=== PATIENT | female | born 1960 | race Caucasian/White ===

== ENCOUNTER 2018-10-17 12:29 | Emergency (ER) | payer SELFPAY ==
[~2018-10-17] VITALS: Ht 167.6 cm; Wt 113.9 kg
--- NOTE | 2018-10-17 12:30 | NUR ---
SEEN AND EXAMINED BY DR. MELCHOR.
--- NOTE | 2018-10-17 12:32 | NUR ---
PT [id number] FROM HOME FOR FACIAL SWELLING, THROAT TIGHTNESS. NAUSEA , PT IS AAOX4, NOT IN RESPIRATORY DISTRESS, V/S STABLE, KEPT RESTED AND COMFORTABLE.
[2018-10-17] MEDS ORDERED: methylPREDNISolone SOD SUCC 40 MG/ML VIAL ONE (12:40)
[2018-10-17] MEDS ORDERED: diphenhydrAMINE HCL 50 MG/ML VIAL ONE (12:40)
[2018-10-17] MEDS ORDERED: methylPREDNISolone SOD SUCC 125 MG/2ML VIAL ONE (12:41)
[2018-10-17] MEDS ORDERED: FAMOTIDINE/PF INJ 20 MG/2 ML VIAL IV ONE ×2 (12:41→13:00)
[2018-10-17] MEDS ORDERED: IV NS 0.9% 1,000 ML IV ONE (13:00)
[2018-10-17] MEDS ORDERED: methylPREDNISolone SOD SUCC 125 MG/2ML VIAL IV ONE (13:00)
[2018-10-17] MEDS ORDERED: diphenhydrAMINE HCL 50 MG/ML VIAL IV ONE (13:00)
--- NOTE | 2018-10-17 14:02 | NUR ---
IV removed. Catheter intact and site benign. Pressure and 4x4 applied to site. No bleeding noted. Patient discharged to home in stable condition. Written and verbal after care instructions given. Patient verbalizes understanding of instruction.
[2018-10-17 14:03] VITALS: BP 126/82
== END 2018-10-17 14:04 | disposition home or self-care (01) ==
LOC: ER 12:33
DX: T78.40XA Allergy, unspecified, initial encounter (principal); X58.XXXA Exposure to other specified factors, initial encounter
CPT/HCPCS: J1200; J2920; J2930; J3490; J7030

== ENCOUNTER 2018-11-20 01:16 | Inpatient (IN) | payer MEDICARE, OTHER ==
[~2018-11-20] VITALS: Ht 167.6 cm; Wt 106.6 kg
--- NOTE | 2018-11-20 01:24 | NUR ---
PT BIBRA FOR ALLERGIC REACTION, PER EMS, PT WOKE UP WITH L FACIAL SWELLING, HIVES, AND SOB. PT WAS GIVEN 0.5 EPI, 50 MG BENADRYL, AND ALBUTEROL EN ROUTE. PT PUT ON THE MONITOR AND PULSE OX. PT SATURATING 98%. RESPIRATIONS EVEN AND UNLABORED. PENDING EVAL FROM ER
[2018-11-20] MEDS ORDERED: methylPREDNISolone SOD SUCC 125 MG/2ML VIAL IV ONE (02:00)
[2018-11-20] MEDS ORDERED: methylPREDNISolone SOD SUCC 125 MG/2ML VIAL ONE (02:03)
--- NOTE | 2018-11-20 02:08 | NUR ---
PT RESTING IN BED, NAD NOTED. WILL CONTINUE TO MONITOR.
--- NOTE | 2018-11-20 02:16 | NUR ---
EKG AT BEDSIDE.
--- NOTE | 2018-11-20 02:16 | NUR ---
Environmental Conservation Officer at bedside.
[2018-11-20] MEDS ORDERED: ALBUTEROL FS 2.5 MG/3 ML VIAL.NEB NEB ONE (02:30)
[2018-11-20] MEDS ORDERED: ALBUTEROL FS 2.5 MG/3 ML VIAL.NEB ONE (02:34)
--- NOTE | 2018-11-20 02:35 | NUR ---
RT AT BEDSIDE.
[2018-11-20 02:40] LABS: BASOPHILS % (AUTO) 0.4 % (0.0-2.0); EOSINOPHILS % (AUTO) 2.7 % (0.0-6.0); HEMATOCRIT 38 % (33-45); HEMOGLOBIN 12.7 g/dL (11.5-14.8); LYMPHOCYTES # (AUTO) 2.6 /CMM (0.8-4.8); LYMPHOCYTES % (AUTO) 43.9 % (20.0-44.0); MEAN CORPUSCULAR HGB CONC 33 g/dl (31.0-36.0); MEAN CORPUSCULAR VOLUME 87 fL (82-100); MONOCYTES # (AUTO) 0.5 /CMM (0.1-1.30); MONOCYTES % (AUTO) 8.1 % (2.0-12.0); NEUTROPHILS # (AUTO) 2.6 /CMM (1.8-8.9); NEUTROPHILS % (AUTO) 44.9 % (43.0-81.0); PLATELET COUNT (AUTO) 178 /CMM (150-450); WHITE BLOOD COUNT (AUTO) 5.8 K/uL (4.3-11.0)
--- NOTE | 2018-11-20 02:42 | NUR ---
XRAY AT BEDSIDE.
[2018-11-20 02:54] LABS: CARBON DIOXIDE 27 mmol/L (21-32); CHLORIDE 103 mmol/L (98-107); GLUCOSE 152 mg/dL (74-106); POTASSIUM 4.3 mmol/L (3.5-5.1); SODIUM SERUM 141 mmol/L (136-145); UREA NITROGEN, BLOOD 22 mg/dL (7-18)
[2018-11-20 03:09] LABS: ALANINE AMINOTRANSFERASE 50 U/L (12-78); ALBUMIN 3.6 g/dL (3.4-5.0); ALKALINE PHOSPHATASE 56 U/L (46-116); ASPARTATE AMINOTRANSFERASE 20 U/L (15-37); B-TYPE NATRIURETIC PEPTIDE 86 PG/ML (0-125); BILIRUBIN,DIRECT 0.2 mg/dL (0.0-0.2); BILIRUBIN,TOTAL 0.6 mg/dL (0.2-1.0); TOTAL PROTEIN, SERUM 7.2 g/dL (6.4-8.2)
--- NOTE | 2018-11-20 03:32 | NUR ---
REPORT GIVEN TO ROSSY BREWER FOR GOOD.
--- NOTE | 2018-11-20 03:41 | NUR ---
LETICIA CALLED TO READ RADIOLOGY REPORT
--- NOTE | 2018-11-20 03:50 | NUR ---
RANGE OPERATOR ADMITTING NOTES ADMITTED A 58 Y/O FEMALE, TRANSPORTED VIA GURNEY, ALERT AND ORIENTED X 4, CALM, NO SIGNS OF ACUTE DISTRESS NOTED, DENIES ANY PAIN, WITH IV ACCESS ON HER RIGHT ARM INTACT AND PATENT. INITIAL ASSESSMENT DONE, ORIENTED PATIENT TO HER ROOM, CALL LIGHT WITHIN REACH, PATIENT REQUESTED THAT SHE WANTS TO SLEEP AND DOESN'T WANNA BE BOTHERED AT THIS TIME, ALL NEEDS ATTENDED, REPOSITIONED FOR COMFORT. BED IN LOW LOCKED POSITION, KEPT CLEAN DRY AND COMFORTABLE. WILL MONITOR ACCORDINGLY.
[2018-11-20 04:00] VITALS: BP 113/62
[2018-11-20] MEDS ORDERED: MAGNESIUM HYDROXIDE 30 ML UDC PO PRN (04:00)
[2018-11-20] MEDS ORDERED: HYDROCODONE/APAP 5/325MG 1 EACH TABLET PO PRN (04:00)
[2018-11-20] MEDS ORDERED: MAG HYDROX/AL HYDROX/SIMETH 30 ML UDC PO PRN (04:00)
[2018-11-20] MEDS ORDERED: ZOLPIDEM TARTRATE 5 MG TABLET PO PRN (04:00)
[2018-11-20] MEDS ORDERED: ONDANSETRON HCL/PF 4 MG/2 ML VIAL IVP PRN (04:00)
[2018-11-20] MEDS ORDERED: IV NS 0.9% 1,000 ML IV PRN (04:00)
[2018-11-20] MEDS ORDERED: ACETAMINOPHEN 325 MG TABLET PO PRN (04:00)
[2018-11-20] MEDS ORDERED: Z GUARD REMEDY 2 OZ OINT TP PRN (04:00)
--- NOTE | 2018-11-20 07:30 | NUR ---
MAT ROLLER NOTES PATIENT WAS ABLE TO REST AND SLEEP COMFORTABLY, DENIES ANY PAIN, ALL SAFETY MEASURES IN PLACED, ENDORSED TO AM NURSE FOR CONTINUITY OF CARE.
--- NOTE | 2018-11-20 07:53 | NUR ---
lumber straightened Opening Notes Patient awake, resting in bed. Alert and oriented x4, able to verbalize needs. No complaints of pain at this time. Respirations even and unlabored on room air, no acute distress noted. On external color television console monitor; current rhythm: normal sinus rhythm at 73 bpm. Peripheral IV to the left arm 22 gauge, intact, patent and infusing ordered fluids. Updated patient on current plan of care and safety measures. Patient verbalized understanding. Safety and fall precautions in place: bed in lowest and locked position, side rails up x2, bed alarm on, call light and personal possessions within reach. Patient verbalized understanding. Will continue to monitor and intervene as needed.
[2018-11-20 08:00] VITALS: BP 99/50
[2018-11-20] MEDS: methylPREDNISolone SOD SUCC 125 MG/2ML VIAL IV SCH ×2 (08:57→13:13)
--- NOTE | 2018-11-20 08:57 | NUR ---
SUPERVISOR LANDSCAPE/MED RECON PATIENT UNABLE TO PROVIDE INFO RE: HOME MEDICATION . PER PATIENT "MY WENT TO WORK, I WILL CALL HIM LATER". PHARMACY OF CHOICE IS CLOSED TODAY.
[2018-11-20] MEDS ORDERED: MECL-102 PO (11:02)
[2018-11-20] MEDS ORDERED: IBUP-1957 PO (11:02)
[2018-11-20] MEDS ORDERED: ASPI-1152 PO (11:02)
[2018-11-20] MEDS ORDERED: ROSU5TAB PO (11:02)
[2018-11-20] MEDS ORDERED: DONE5TAB34 PO (11:02)
[2018-11-20] MEDS ORDERED: MEMA14CA5 PO (11:02)
[2018-11-20] MEDS ORDERED: OMEG1CAP PO (11:02)
[2018-11-20] MEDS ORDERED: LOSA100T31 PO (11:02)
[2018-11-20] MEDS ORDERED: SENN-168 PO (11:02)
[2018-11-20] MEDS ORDERED: AZEL137S7 NS (11:02)
[2018-11-20] MEDS ORDERED: ACET-2605 PO (11:02)
[2018-11-20] MEDS ORDERED: EZET10TA27 PO (11:02)
[2018-11-20] MEDS ORDERED: GABA-534 PO (11:02)
[2018-11-20] MEDS ORDERED: NITR0.4T48 SL (11:02)
[2018-11-20] MEDS ORDERED: SUMA100T16 PO (11:02)
[2018-11-20] MEDS ORDERED: CLON0.5T12 PO (11:02)
[2018-11-20] MEDS ORDERED: FAMO-131 PO (11:02)
--- NOTE | 2018-11-20 14:29 | NUR ---
SIDING INSTALLER NOTES-- RECEIVED ORDERS PER DR. STOCKTON FOR DISCHARGE, HOME SELF CARE. READ BACK AND VERIFIED. NOTED AND CARRIED OUT.
--- NOTE | 2018-11-20 15:00 | NUR ---
net mobile developermainframe applications developer Notes Patient awake, resting in bed. Alert and oriented x4, able to verbalize needs. No complaints of pain at this time. Respirations even and unlabored on room air, no acute distress noted. Vital signs stable, ambulates with steady gait. Peripheral IV to the left arm 22 gauge removed with catheter tip intact. No redness, swelling or bleeding of the site noted. Refused skin assessment and discharge photos, states she is "okay and does not need photos". Provided discharge instructions and Exitcare, including signs and symptoms of allergic reaction and emergency to patient and spouse, patient verbalized understanding and acknowledged via signature on discharge instructions. Prescription given to patient. Removed ID band. Discharged with all personal belongings. Escorted with RN to [facility]. Left via private car with spouse.
[2018-11-23 00:07] LABS: COMPLEMENT, TOTAL (CH50) >60 U/mL (>41)
[2018-11-23 05:09] LABS: COMPLEMENT C4, SERUM 48 mg/dL (14-44)
== END 2018-11-20 15:04 | disposition home or self-care (01) | DRG 916 ==
LOC: ER 01:18 → TELE 03:47
PROVIDERS: ADMIT Nurse Practitioner Acute Care; ATTEND Nurse Practitioner Acute Care
DX: T78.40XA Allergy, unspecified, initial encounter (principal); X58.XXXA Exposure to other specified factors, initial encounter; I25.10 Atherosclerotic heart disease of native coronary artery without angina pectoris; Z95.1 Presence of aortocoronary bypass graft; E66.9 Obesity, unspecified; Z68.37 Body mass index [BMI] 37.0-37.9, adult; I10 Essential (primary) hypertension
CPT/HCPCS: 36415; 71045-TC; 80048-TC; 80076-TC; 83880; 84484-TC; 85025-TC; 85652-TC; 85730-TC; 86160; 86161; 86162; G0378; J2930

== ENCOUNTER 2020-11-28 10:17 | Inpatient (IN) | payer MEDICARE, OTHER ==
[~2020-11-28] VITALS: Ht 167.6 cm; Wt 113.0 kg
[~2020-11-28 10:17] MED LIST: ACET-2605 PO; ASPI-1420 PO; AZEL137S7 NS; CLON0.5T4 PO; DONE5TAB34 PO; EZET10TA32 PO; FAMO-131 PO; GABA-534 PO; IBUP-1957 PO; LOSA100T31 PO; MECL-159 PO; MEMA14CA5 PO; NITR0.4T48 SL; OMEG1CAP PO; ROSU5TAB PO; SENN-261 PO; SUMA100T16 PO
--- NOTE | 2020-11-28 10:20 | NUR ---
[id number] FROM HOME, ALLERGIC REACTION, RASH AND ITCHING ALL OVER BODY, -SOB, TO ER BED 4, HOOKED TO MONITOR, CHANGED TO HOSP GOWN, WARM BLANKET PROVIDED. DR RATLIFF AT BEDSIDE
[2020-11-28] MEDS ORDERED: methylPREDNISolone SOD SUCC 125 MG/2ML VIAL IV ONE (10:30)
[2020-11-28] MEDS ORDERED: FAMOTIDINE (20 MG) 20 MG TABLET PO ONE (10:30)
[2020-11-28] MEDS ORDERED: diphenhydrAMINE HCL 50 MG/ML VIAL IV ONE (10:30)
[2020-11-28] MEDS ORDERED: diphenhydrAMINE HCL 50 MG/ML VIAL ONE (10:30)
[2020-11-28] MEDS ORDERED: FAMOTIDINE (20 MG) 20 MG TABLET ONE (10:31)
[2020-11-28] MEDS ORDERED: methylPREDNISolone SOD SUCC 125 MG/2ML VIAL ONE (10:31)
--- NOTE | 2020-11-28 10:42 | NUR ---
SUPERINTENDENT NONSELLING AT BEDSIDE FOR XRAY
[2020-11-28 10:50] LABS: BASOPHILS % (AUTO) 0.3 % (0.0-2.0); EOSINOPHILS % (AUTO) 0.2 % (0.0-6.0); HEMATOCRIT 38 % (33-45); HEMOGLOBIN 12.5 g/dL (11.5-14.8); LYMPHOCYTES # (AUTO) 0.9 /CMM (0.8-4.8); LYMPHOCYTES % (AUTO) 10.5 % (20.0-44.0); MEAN CORPUSCULAR HGB CONC 33 g/dl (31.0-36.0); MEAN CORPUSCULAR VOLUME 86 fL (82-100); MONOCYTES # (AUTO) 0.4 /CMM (0.1-1.30); MONOCYTES % (AUTO) 4.4 % (2.0-12.0); NEUTROPHILS # (AUTO) 7.2 /CMM (1.8-8.9); NEUTROPHILS % (AUTO) 84.6 % (43.0-81.0); PLATELET COUNT (AUTO) 189 /CMM (150-450); RED BLOOD CELL COUNT(AUTO) 4.34 MIL/uL (4.0-5.2); WHITE BLOOD COUNT (AUTO) 8.5 K/uL (4.3-11.0)
[2020-11-28 10:58] LABS: CALCIUM, SERUM 8.6 mg/dL (8.5-10.1); CREATININE 1.1 mg/dL (0.6-1.3); POTASSIUM 3.9 mmol/L (3.5-5.1)
[2020-11-28 11:03] LABS: ALBUMIN 3.2 g/dL (3.4-5.0); BILIRUBIN,DIRECT 0.1 mg/dL (0.0-0.2); BILIRUBIN,TOTAL 0.5 mg/dL (0.2-1.0); TOTAL PROTEIN, SERUM 7.2 g/dL (6.4-8.2)
[2020-11-28] MEDS ORDERED: LINA145C PO (12:01)
[2020-11-28] MEDS ORDERED: ESCI20TA PO (12:01)
[2020-11-28] MEDS ORDERED: FURO40TA5 PO (12:01)
[2020-11-28] MEDS ORDERED: FAMO40TA7 PO (12:01)
[2020-11-28] MEDS ORDERED: RANO10005 PO (12:01)
[2020-11-28] MEDS ORDERED: OMEG-220 PO (12:01)
[2020-11-28] MEDS ORDERED: CARV25TA2 PO (12:01)
--- NOTE | 2020-11-28 12:36 | NUR ---
PATIENT IN BED AWAKE, HOOKED TO MONITOR. WILL CONTINUE TO MONITOR ACCORDINGLY
[2020-11-28] MEDS ORDERED: NITROGLYCERIN 0.4 MG/TAB BOTTLE SL PRN (13:00)
[2020-11-28] MEDS: methylPREDNISolone SOD SUCC 125 MG/2ML VIAL IV SCH ×3 (13:00→21:01)
[2020-11-28] MEDS ORDERED: SENNOSIDES 8.6 MG TABLET PO PRN (13:00)
--- NOTE | 2020-11-28 13:07 | NUR ---
GOT BED 310-2
[2020-11-28] MEDS ORDERED: ACETAMINOPHEN ES 500 MG TABLET PO PRN (13:30)
--- NOTE | 2020-11-28 14:04 | NUR ---
REPORT GIVEN TO BERTRAM FRYE OF MS UNIT
--- NOTE | 2020-11-28 14:20 | NUR ---
MS RN NOTES PATIENT WAS BROUGHT VIA GURNEY. RECEIVED REPORT FROM ESTELITA. PT IS A/O X4. ON ROOM AIR, TOLERATING WELL. NO SOB NOTED. IN NO APPARENT DISTRESS. IV ACCESS ON THE L AC #18, INTACT. SAFETY MEASURES MAINTAINED. BED IN LOWEST POSITION, BRAKES LOCKED. SIDE RAILS UP X2. CALL LIGHT WITHIN REACH. WILL CONTINUE PLAN OF CARE.
--- NOTE | 2020-11-28 15:33 | NUR ---
MS RN NOTES CLARIFIED WITH DR ELIZABETH ABOUT SOLUMEDROL ORDER. LAST DOSE WAS GIVEN @ THE ER AROUND [address] IN[address] MCCULLOUGH AND SAID JUST TO SKIP DOSE AT 1300 AND JUST CONTINUE ON THE NEXT ONE.
--- NOTE | 2020-11-28 15:36 | NUR ---
MS RN NOTES DR GLENN Lassiter ORDERED REGULAR DIET FOR THE PT
[2020-11-28] MEDS: diphenhydrAMINE HCL 50 MG/ML VIAL IV SCH ×2 (17:11→23:53)
[2020-11-28] MEDS: MEMANTINE HCL 5 MG TABLET PO SCH (17:18)
[2020-11-28] MEDS: CARVEDILOL 12.5 MG TABLET PO SCH (17:19)
[2020-11-28] MEDS: RANOLAZINE 500 MG TAB.ER.12H PO SCH (17:19)
--- NOTE | 2020-11-28 18:24 | NUR ---
MS RN CLOSING NOTES PATIENT IN BED. A/O X4. AFEBRILE. ON ROOM AIR, TOLERATING WELL. NO SOB NOTED. NO S/S OF RESPIRATORY DISTRESS. IV ACCESS ON L AC #18, INTACT AND PATENT. ALL NEEDS HAVE BEEN MET. ROUTINE MEDS WERE GIVEN ORDERED. SAFETY MEASURES MAINTAINED. BED IN LOWEST POSITION, BRAKES LOCKED. SIDE RAILS UP X2. CALL LIGHT WITHIN REACH. WILL ENDORSE TO SHELLS INSPECTOR FOR CONTINUITY OF CARE.
--- NOTE | 2020-11-28 19:35 | NUR ---
RN NOTES PATIENT IN BED. A/O X4. AFEBRILE. ON ROOM AIR, TOLERATING WELL. NO SOB NOTED. NO S/S OF RESPIRATORY DISTRESS. IV ACCESS ON LAC #18, INTACT AND PATENT. ALL NEEDS HAVE BEEN MET. ROUTINE MEDS WERE GIVEN ORDERED. SAFETY MEASURES MAINTAINED. BED IN LOWEST POSITION, BRAKES LOCKED. SIDE RAILS UP X2. CALL LIGHT WITHIN REACH. WILL ENDORSE TO DOT ETCHER APPRENTICE FOR CONTINUITY OF CARE.
[2020-11-28 20:00] VITALS: BP 119/59
[2020-11-28] MEDS: ATORVASTATIN 10 MG TABLET PO SCH ×2 (21:02→21:25)
--- NOTE | 2020-11-28 21:09 | NUR ---
RN NOTES pt refused atorvastatin risk and benefits explained x 3 pt stated " i have allergic reaction i don't want to take any new medications look at my rashes no new medications please"
[2020-11-29] MEDS: diphenhydrAMINE HCL 50 MG/ML VIAL IV SCH (05:20)
--- NOTE | 2020-11-29 06:47 | NUR ---
RN NOTES PATIENT IN BED. A/O X4. AFEBRILE. ON ROOM AIR, TOLERATING WELL. NO SOB NOTED. NO S/S OF RESPIRATORY DISTRESS. IV ACCESS ON LAC #18, INTACT AND PATENT. ALL NEEDS HAVE BEEN MET. ROUTINE MEDS WERE GIVEN ORDERED. SAFETY MEASURES MAINTAINED. BED IN LOWEST POSITION, BRAKES LOCKED. SIDE RAILS UP X2. CALL LIGHT WITHIN REACH. WILL ENDORSE CARE TO DAY SHIFT NURSE.
--- NOTE | 2020-11-29 07:22 | NUR ---
MS/RN OPENING NOTE RECEIVED PATIENT FROM POST ACUTE CARE NURSE PRACTITIONER NURSE. PATIENT IS ASLEEP IN BED, EASILY WOKEN UP. PATIENT IS A/O X4, NO ACUTE DISTRESS NOTED. PATIENT ON ROOM AIR, TOLERATING WELL, NO SOB NOTED, BREATHING EVEN, NO LABORED. SAFETY MEASURES IN PLACE, BED LOCKED AND IN LOWEST POSITION, CALL LIGHT WITHIN REACH. WILL CONTINUE TO MONITOR AND ENSURE SAFETY.
[2020-11-29 08:00] VITALS: BP 118/55
[2020-11-29] MEDS: methylPREDNISolone SOD SUCC 125 MG/2ML VIAL IV SCH (08:41)
[2020-11-29] MEDS: MEMANTINE HCL 5 MG TABLET PO SCH (08:48)
[2020-11-29] MEDS: RANOLAZINE 500 MG TAB.ER.12H PO SCH (08:48)
[2020-11-29] MEDS: CARVEDILOL 12.5 MG TABLET PO SCH (08:53)
[2020-11-29] MEDS ORDERED: ASPIRIN EC 81 MG TABLET.DR PO SCH (09:00)
[2020-11-29] MEDS ORDERED: MEMANTINE HCL 14 MG PO SCH (09:00)
[2020-11-29] MEDS ORDERED: Medication Not On Formulary EA (Rosuvastatin Calcium (Crestor) 10 MG) PO SCH (09:00)
[2020-11-29] MEDS ORDERED: FUROSEMIDE 40 MG TABLET PO SCH (09:00)
[2020-11-29] MEDS ORDERED: ESCITALOPRAM OXALATE (10 MG) 10 MG TABLET PO SCH (09:00)
[2020-11-29] MEDS ORDERED: FAMOTIDINE (20 MG) 20 MG TABLET PO SCH (09:00)
[2020-11-29] MEDS ORDERED: DONEPEZIL 5 MG TABLET PO SCH (09:00)
[2020-11-29] MEDS ORDERED: METH4TAB3 PO (09:12)
--- NOTE | 2020-11-29 10:44 | NUR ---
MS/RN DISCHARGED PATIENT WAS DISCHARGED TO HOME IN STABLE CONDITION. REMOVED HEPLOCK, APPLIED PRESSURE DRESSING, NAME BAND REMOVED. EDUCATED PATIENT ON EXIT CARE/DISCHARGE INSTRUCTIONS. INFORMED PATIENT OF NEW PRESCRIBED MEDICATION SIDE EFFECTS. PATIENT VERBALIZED UNDERSTANDING. COPY OF EXIT CARE/DISCHARGE PAPERWORK GIVEN TO PATIENT. PATIENT WAS WALKED TO [facility] BY RN. DAUGHTER WAITING IN PRIVATE CARE.
== END 2020-11-29 11:00 | disposition home or self-care (01) | DRG 607 ==
LOC: ER 10:20 → MED 13:18
PROVIDERS: ADMIT Internal Medicine; ATTEND Internal Medicine
DX: L27.1 Localized skin eruption due to drugs and medicaments taken internally (principal); F03.90 Unspecified dementia, unspecified severity, without behavioral disturbance, psychotic disturbance, mood disturbance, and anxiety; I11.0 Hypertensive heart disease with heart failure; I50.9 Heart failure, unspecified; Z95.1 Presence of aortocoronary bypass graft; Z20.822 Contact with and (suspected) exposure to COVID-19; T37.3X5A Adverse effect of other antiprotozoal drugs, initial encounter; Y92.009 Unspecified place in unspecified non-institutional (private) residence as the place of occurrence of the external cause; Z87.440 Personal history of urinary (tract) infections; E86.0 Dehydration
CPT/HCPCS: 36415; 71045-TC; 80048-TC; 80076-TC; 85025-TC; 85652-TC; 87081-TC; G0378; J1200; J2930

== ENCOUNTER 2024-12-19 15:58 | Emergency (ER) | payer MEDICARE, OTHER ==
[~2024-12-19] VITALS: Ht 162.6 cm; Wt 118.8 kg
[~2024-12-19 15:58] MED LIST changes: -ACET-2605 PO; +ASCO100058 PO; +ATOR40TA PO; -AZEL137S7 NS; +CARV25TA2 PO; -CLON0.5T4 PO; -DONE5TAB34 PO; +EPIN0.3A4 IM; +ESCI20TA PO; -FAMO-131 PO; +FAMO40TA7 PO; -GABA-534 PO; -IBUP-1957 PO; +IBUP-23 PO; +IRBE150T28 PO; +ISOS60TA72 PO; +LINA145C PO; -LOSA100T31 PO; -MECL-159 PO; -MEMA14CA5 PO; -NITR0.4T48 SL; -OMEG1CAP PO; +OMEP20TA5 PO; +RANO10005 PO; -ROSU5TAB PO; -SUMA100T16 PO
[2024-12-19 16:15] VITALS: BP 129/66; TEMP 98.5; O2SAT 99
== END 2024-12-19 16:26 | disposition left against medical advice (07) ==
LOC: ER 16:02
DX: R00.2 Palpitations (principal); Z53.29 Procedure and treatment not carried out because of patient's decision for other reasons